=== PATIENT | male | born 1980 | race Two or more races ===

== ENCOUNTER 2017-06-13 06:23 | Emergency (ER) | payer OTHER ==
[2017-06-13] MEDS ORDERED: LR(*) 1000 ML BAG 1,000 ML IV ONE (06:28)
[2017-06-13] MEDS ORDERED: IOPAMIDOL 76% 75 ML INFUS BTL 75 ML ONE (06:41)
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
[2017-06-13 06:55] LABS: PLATELET COUNT, AUTOMATED 189 K/uL (150-450)
[2017-06-13 06:59] LABS: INR 0.96
--- NOTE | 2017-06-13 07:21 | RADIOLOGY IMAGING REPORT ---
FACILITY: [facility] PATIENT NAME: Khang Ch : 1980 MR: [id number] V: [id number] EXAM DATE: ORDERING PHYSICIAN: LORETO CORREIA TECHNOLOGIST: Location: [facility] - [place], [place] Patient: Khang Ch : 1980 Visit/Account:[id number] Date of Sevice: 06/13/2017 INDICATION: trauma/pain EXAM DATE: 06/13/2017 6:28 AM COMPARISON: None. FINDINGS: 2 views left shoulder. Mineralization is normal. There is a comminuted proximal humeral fracture inv olving at least the surgical neck, but also possibly a portion of the humeral head is well. The head appears to be posteriorly displaced and rotated. No well-demonstrated additional fracture or disloc ation. IMPRESSION: Comminuted, displaced and rotated proximal fracture of the left humerus. Report Dictated By: Haresh Pugh MD at 06/13/2017 7:16 AM Report E-Signed By: Haresh Pugh MD at 06/13/2017 7:18 AM WSN:[id number]
[2017-06-13] MEDS ORDERED: fentaNYL CITR 100 MCG/2 ML AMP IVP ONE (08:20)
--- NOTE | 2017-06-13 08:38 | RADIOLOGY IMAGING REPORT ---
FACILITY: [facility] PATIENT NAME: Khang Ch : 1980 MR: [id number] V: [id number] EXAM DATE: ORDERING PHYSICIAN: LORETO CORREIA TECHNOLOGIST: Location: [facility] Patient: Khang Ch : 1980 Visit/Account:[id number] Date of Sevice: 06/13/2017 C-SPINE W/O CONTRAST HISTORY: Trauma COMPARISON STUDIES: none TECHNIQUE: Axial images were obtained from the skull base through the upper thoracic spine without i ntravenous contrast. Coronal and sagittal reformatted images were obtained from the axial source data . One of the following dose optimization techniques was utilized in the performance of this exam: Autom ated exposure control; adjustment of the mA and/or kV according to the patient's size; or use of an i terative reconstruction technique. Specific details can be referenced in the facility's radiology C T exam operational policy. FINDINGS: Pre-vertebral soft tissues: Negative Alignment: negative Vertebral bodies: Negative Posterior elements: Negative Disc Spaces: Negative Visualized soft tissues anterior neck: Negative Visualized lung / mediastinum: Negative IMPRESSION: 1. No evidence for an acute fracture of the cervical spine. Report Dictated By: Jerome Zazueta MD at 06/13/2017 8:33 AM Report E-Signed By: Jerome Zazueta MD at 06/13/2017 8:36 AM WSN:[id number]
--- NOTE | 2017-06-13 08:39 | RADIOLOGY IMAGING REPORT ---
FACILITY: [facility] PATIENT NAME: Khang Ch : 1980 MR: [id number] V: [id number] EXAM DATE: ORDERING PHYSICIAN: LORETO CORREIA TECHNOLOGIST: Location: [facility] - [place] Patient: Khang Ch : 1980 Visit/Account:[id number] Date of Sevice: 06/13/2017 HEAD W/O CONTRAST HISTORY: Trauma COMPARISON STUDIES: none TECHNIQUE: Contiguous axial images were obtained from the skull base to the vertex. One of the following dose optimization techniques was utilized in the performance of this exam: Autom ated exposure control; adjustment of the mA and/or kV according to the patient's size; or use of an i terative reconstruction technique. Specific details can be referenced in the facility's radiology C T exam operational policy. FINDINGS: Hemorrhage: Negative Ventricles / sulci / fissures: Negative Masses / midline shift: Negative White matter: Negative Sebastian-white differentiation: Negative Extra-axial spaces: Negative Bones and skull base: Negative Visualized mastoid air cells / paranasal sinuses: Negative IMPRESSION: 1. Unremarkable non-contrast head CT. No evidence for acute intracranial hemorrhage, mass or acute i schemia. Report Dictated By: Jerome Zazueta MD at 06/13/2017 8:27 AM Report E-Signed By: Jerome Zazueta MD at 06/13/2017 8:36 AM WSN:[id number]
--- NOTE | 2017-06-13 08:39 | RADIOLOGY IMAGING REPORT ---
FACILITY: [facility] [place] PATIENT NAME: Khang Ch : 1980 MR: [id number] V: [id number] EXAM DATE: ORDERING PHYSICIAN: LORETO CORREIA TECHNOLOGIST: Location: [facility] Patient: Khang Ch : 1980 Visit/Account:[id number] Date of Sevice: 06/13/2017 CHEST/AB/PELV W/CONTRAST HISTORY: Trauma TECHNIQUE: CT chest, abdomen and pelvis with intravenous contrast. Contiguous helical images was per formed from the lung apices to the symphysis pubis. One of the following dose optimization techniques was utilized in the performance of this exam: Autom ated exposure control; adjustment of the mA and/or kV according to the patient's size; or use of an i terative reconstruction technique. Specific details can be referenced in the facility's radiology C T exam operational policy. CONTRAST: 75 cc of Isovue-370 COMPARISON: None. FINDINGS: CHEST: Heart/vessels: Negative. Mediastinum: Negative. Lymph nodes: Negative. Lungs/pleura: Negative. Bones/soft tissues: There is an impacted left humeral head and neck fracture. ABDOMEN/PELVIS: Hepatobiliary: Liver is enlarged measures 21 cm in craniocaudal length with fatty infiltration. Spleen: Negative. Adrenals: Negative. Kidneys/: Patient appears to have congenital left UPJ obstruction with severe left-sided hydroneph rosis. Within this setting, there is a large stone lower pole left kidney measuring 1.7 x 2 x 1.8 cm. Other smaller stones are noted in left kidney. Nonobstructing 2 mm stone is noted in the left renal pelvis. Pancreas: Soft tissue near the pancreatic tail may represent normal lobulation of the pancreas. I se e no surrounding traumatic injury. GI: Negative. Vessels/spaces/nodes: Negative. Bones/soft tissues: Negative. IMPRESSION: 1. Impacted left humeral head and neck fracture. 2. Otherwise no other traumatic injury to the chest, abdomen or pelvis. 3. 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 Nonobstructing s tones are noted in the left kidney the largest in the lower pole measuring 1.7 x 2 x 1.8 cm. Report Dictated By: Jerome Zazueta MD at 06/13/2017 8:11 AM Report E-Signed By: Jerome Zazueta MD at 06/13/2017 8:36 AM WSN:[id number]
[2017-06-13] MEDS ORDERED: OXYC-865 PO ×2 (08:58→11:11)
[2017-06-13 09:00] VITALS: BP 138/97
== END 2017-06-13 10:11 | disposition home or self-care (01) ==
LOC: ER 06:29
DX: S42.212A Unspecified displaced fracture of surgical neck of left humerus, initial encounter for closed fracture (principal); V49.88XA Car occupant (driver) (passenger) injured in other specified transport accidents, initial encounter
CPT/HCPCS: 70450; 71260; 72125; 73030; 74177; 80320; 85025; 85610; 85730; 99284; J3010; J7120; Q9967; 82040; 82247; 82310; 82374; 82435; 82565; 82947; 84075; 84132; 84155; 84295; 84450; 84460; 84520

== ENCOUNTER → 2017-06-13 | Outpatient (CLI) | payer OTHER ==
[~2017-06-13] MED LIST: OXYC-865 PO
== END ==
LOC: AMB 05:51
PROVIDERS: ATTEND Nurse Practitioner
DX: M25.512 Pain in left shoulder (principal); R07.9 Chest pain, unspecified; M54.9 Dorsalgia, unspecified; V48.5XXA Car driver injured in noncollision transport accident in traffic accident, initial encounter; Y92.411 Interstate highway as the place of occurrence of the external cause
CPT/HCPCS: A0425; A0427